=== PATIENT | male | born 1970 | race Caucasian/White ===

== ENCOUNTER 2017-11-17 07:29 | Emergency (ER) | payer SELFPAY ==
[~2017-11-17] VITALS: Ht 182.9 cm; Wt 98.6 kg
[~2017-11-17 07:29] MED LIST: ANUSOL HC CREAM30 GM TP; CEPHALEXIN500 M1 PO; COLACE 100100 MG/CAP PO; LORTAB 5/500 501 TAB PO; LOTRIMIN ULTRA1% TP; NO HOME MEDICATIONS; NORCO 325 MG-51 TAB PO; PERCOCET 325 MG1 TAB PO; PREDNISONE20 MG PO; SEPTRA DS 8001 TAB PO; TYLENOL W/COD1 UDTAB PO
[2017-11-17 07:37] VITALS: BP 142/88; PULSE 69; TEMP 97.9
[2017-11-17] MEDS ORDERED: NEURONTIN100 MG/CAP PO (07:54)
== END 2017-11-17 08:21 | disposition home or self-care (01) ==
LOC: COL.ER 07:29
DX: M79.621 Pain in right upper arm (principal)

== ENCOUNTER 2017-11-24 14:49 | Emergency (ER) | payer SELFPAY ==
[~2017-11-24] VITALS: Ht 188 cm; Wt 98.2 kg
[~2017-11-24 14:49] MED LIST changes: +NEURONTIN100 MG/CAP PO
[2017-11-24 14:54] VITALS: BP 138/97; PULSE 81; TEMP 98.7
== END 2017-11-24 15:41 | disposition home or self-care (01) ==
LOC: COL.ER 14:49
DX: M79.601 Pain in right arm (principal); X50.3XXA Overexertion from repetitive movements, initial encounter; Y92.009 Unspecified place in unspecified non-institutional (private) residence as the place of occurrence of the external cause

== ENCOUNTER 2018-04-27 11:30 | Emergency (ER) | payer SELFPAY ==
[~2018-04-27] VITALS: Ht 188 cm; Wt 96.4 kg
[2018-04-27 11:33] VITALS: BP 138/86
[2018-04-27 11:57] VITALS: PULSE 80; TEMP 97.1
== END 2018-04-27 11:58 | disposition home or self-care (01) ==
LOC: COL.ER 11:30
DX: S91.202A Unspecified open wound of left great toe with damage to nail, initial encounter (principal); Z88.0 Allergy status to penicillin; W22.8XXA Striking against or struck by other objects, initial encounter; Y92.009 Unspecified place in unspecified non-institutional (private) residence as the place of occurrence of the external cause
CPT/HCPCS: J1885

== ENCOUNTER 2018-11-01 20:48 | Emergency (ER) | payer SELFPAY ==
[~2018-11-01] VITALS: Ht 188 cm; Wt 96.4 kg
[2018-11-01 21:04] VITALS: BP 143/88; PULSE 84
[2018-11-01] MEDS ORDERED: NORCO 325 MG-51 TAB PO (21:43)
[2018-11-01 22:00] VITALS: TEMP 97.8
== END 2018-11-01 22:00 | disposition home or self-care (01) ==
LOC: COL.ER 20:48
DX: K08.89 Other specified disorders of teeth and supporting structures (principal); Z88.0 Allergy status to penicillin; F17.210 Nicotine dependence, cigarettes, uncomplicated

== ENCOUNTER 2018-11-04 10:05 | Emergency (ER) | payer SELFPAY ==
[~2018-11-04] VITALS: Ht 188 cm; Wt 96.4 kg
[2018-11-04 10:11] VITALS: BP 147/84; TEMP 97.5
[2018-11-04] MEDS ORDERED: MOTRIN 800800 MG/TAB PO (10:36)
[2018-11-04 10:55] VITALS: PULSE 88
== END 2018-11-04 10:57 | disposition home or self-care (01) ==
LOC: COL.ER 10:05
DX: K02.9 Dental caries, unspecified (principal); F17.210 Nicotine dependence, cigarettes, uncomplicated; F12.90 Cannabis use, unspecified, uncomplicated

== ENCOUNTER 2019-05-23 17:36 | Emergency (ER) | payer OTHER ==
[~2019-05-23] VITALS: Ht 188 cm; Wt 97.7 kg
[~2019-05-23 17:36] MED LIST changes: +MOTRIN 800800 MG/TAB PO
[2019-05-23 17:53] VITALS: BP 142/92; TEMP 98.4
[2019-05-23] MEDS ORDERED: CLEOCIN HCL300 MG PO (18:13)
[2019-05-23 18:22] VITALS: PULSE 68
== END 2019-05-23 18:25 | disposition home or self-care (01) ==
LOC: COL.ER 17:36
DX: K02.9 Dental caries, unspecified (principal); F17.210 Nicotine dependence, cigarettes, uncomplicated

== ENCOUNTER 2022-09-17 01:38 | Emergency (ER) | payer OTHER ==
[~2022-09-17] VITALS: Ht 188 cm; Wt 100.0 kg
[~2022-09-17 01:38] MED LIST changes: +CLEOCIN HCL300 MG PO; +MOTRIN 200200 MG/TAB PO; +STOOL SOFTENER100 M2 PO
[2022-09-17 01:40] VITALS: BP 161/97; PULSE 65; TEMP 97.6
[2022-09-17] MEDS ORDERED: CLEOCIN HCL300 MG PO (01:54)
== END 2022-09-17 02:15 | disposition home or self-care (01) ==
LOC: COL.ER 01:38
DX: S02.5XXA Fracture of tooth (traumatic), initial encounter for closed fracture (principal); K05.30 Chronic periodontitis, unspecified; K02.9 Dental caries, unspecified; Z88.0 Allergy status to penicillin; Z28.311 Partially vaccinated for COVID-19; X58.XXXA Exposure to other specified factors, initial encounter